=== PATIENT | female | born 1970 | race Caucasian/White ===

== ENCOUNTER 2017-06-15 22:49 | Emergency (ER) | payer OTHER ==
[~2017-06-15] VITALS: Ht 162.6 cm; Wt 125.2 kg
[~2017-06-15 22:49] MED LIST: ACCUNEB SO1.25 MG/1 INH; ACCUNEB0.63 MG/3 INH; ADVAIR 100-501 EACH; ALEVE220 M1 PO; AZITHROMYCIN 2250 MG PO; BACTRIM DS TAB1 EACH PO; CALCIUM 600 +1 EAC1; CELEXA20 MG PO; CYMBALTA20 MG PO; FAMCICLOVIR125 MG PO; HYDROCHLOROTH12.5 MG PO; HYDROCHLOROTHIA50 MG PO; HYDROCODON-ACET15 ML PO; IBUPROFEN 800800 MG PO; JANUVIA50 MG PO; K-DUR10 MEQ PO; LEXAPRO20 MG PO; LISINOPRIL40 MG PO; METFORMIN 500500 MG PO; MUCINEX DM TABL1 TA1 PO; MULTI FOR HER1 EACH; MULTIVITAMIN W1 EACH PO; NORCO 5-325 TA1 EACH PO; NORVASC10 MG PO; PRINIVIL20 MG PO; PROTONIX40 MG PO; PROVENTIL; PROVENTIL HFA6.7 G1 INH; UNICOMPLEX M TA1 TA1; VITAMIN C100 M1 PO; VITAMIN E100 UNIT; XANAX 0.25 MG0.25 MG PO; ZOFRAN ODT4 MG PO; ZYRTEC 10 MG TA10 MG PO
[2017-06-15] MEDS ORDERED: PREDNISONE 10 M10 MG PO (23:06)
[2017-06-15] MEDS ORDERED: EDARBYCLOR 40-1 EACH PO (23:07)
[2017-06-15] MEDS ORDERED: DULCOLAX5 MG PO (23:07)
[2017-06-16 00:13] LABS: HEMATOCRIT 38.3 % (37.0-47.0); HEMOGLOBIN 12.7 gm/dL (12.0-15.0); MCH 29.5 pg (26.0-34.0); MCHC 33.2 g/dL (28.0-37.0); MCV 88.7 fL (80.0-100.0); PLATELET COUNT 245 thou/uL (150-400); RBC 4.31 mil/uL (4.20-5.00); RDW 13.3 % (10.5-14.5); WBC 11.8 thou/uL (4.0-11.0)
[2017-06-16 00:14] LABS: MANUAL DIFF YES
[2017-06-16 00:20] LABS: CALCIUM 8.5 mg/dL (8.5-10.1); POTASSIUM 4.4 mmol/L (3.5-5.1)
[2017-06-16 00:39] LABS: ABSOLUTE NEUTROPHILS 8.1 thou/uL (1.4-8.2); TOTAL CELL COUNT 100
[2017-06-16 01:21] LABS: URINE BILIRUBIN NEGATIVE (Negative); URINE BLOOD NEGATIVE (Negative); URINE COLOR YELLOW; URINE GLUCOSE-RANDOM* NEGATIVE (Negative); URINE KETONES NEGATIVE (Negative); URINE LEUKOCYTES-REFLEX 1+ (Negative); URINE PROTEIN (DIPSTICK) NEGATIVE (Negative); URINE SPECIFIC GRAVITY 1.025 (1.003-1.035); URINE UROBILINOGEN 0.2 E.U./dl (0.2-1.0)
[2017-06-16 01:38] LABS: CASTS None Seen /LPF (None Seen); CRYSTALS None Seen /LPF (None Seen); SQUAMOUS 4-10 Moderate /LPF (0-3); URINE RBC None Seen /HPF (0-2); URINE WBC-REFLEX 6-15 Few /HPF (0-5)
[2017-06-16] MEDS ORDERED: MACROBID 100 M100 M2 PO (01:44)
== END 2017-06-16 01:59 | disposition home or self-care (01) ==
LOC: ER 22:49
PROVIDERS: Emergency Medicine
DX: N39.0 Urinary tract infection, site not specified (principal); M79.1 Myalgia; E11.9 Type 2 diabetes mellitus without complications; J45.909 Unspecified asthma, uncomplicated; I10 Essential (primary) hypertension; F10.99 Alcohol use, unspecified with unspecified alcohol-induced disorder; Z98.890 Other specified postprocedural states; Z91.048 Other nonmedicinal substance allergy status; Z88.1 Allergy status to other antibiotic agents; Z91.018 Allergy to other foods; Z91.040 Latex allergy status; Z88.8 Allergy status to other drugs, medicaments and biological substances

== ENCOUNTER → 2018-01-08 | Outpatient (CLI) | payer OTHER ==
[~2018-01-08] MED LIST changes: +DULCOLAX5 MG PO; +EDARBYCLOR 40-1 EACH PO; +MACROBID 100 M100 M2 PO; +PREDNISONE 10 M10 MG PO
== END ==
LOC: RAD 09:07
DX: R05 Cough (principal); R06.02 Shortness of breath

== ENCOUNTER → 2018-10-19 | Outpatient (CLI) | payer OTHER | LOC: CAT 15:00 | DX: Z13.6 Encounter for screening for cardiovascular disorders (principal); E78.00 Pure hypercholesterolemia, unspecified ==

== ENCOUNTER → 2019-03-07 | Outpatient (CLI) | payer OTHER | LOC: ULTRA 12:01 | DX: N93.8 Other specified abnormal uterine and vaginal bleeding (principal) ==

== ENCOUNTER 2020-01-23 16:06 | Emergency (ER) | payer OTHER ==
[~2020-01-23] VITALS: Ht 162.6 cm; Wt 131.5 kg
[2020-01-23] MEDS ORDERED: NAPROSYN500 MG PO (17:46)
[2020-01-23] MEDS ORDERED: TRAMADOL 50 MG50 MG PO (17:46)
[2020-01-23 18:00] VITALS: BP 133/84
== END 2020-01-23 18:00 | disposition home or self-care (01) ==
LOC: ER 16:06
DX: S93.492A Sprain of other ligament of left ankle, initial encounter (principal); S80.211A Abrasion, right knee, initial encounter; I10 Essential (primary) hypertension; E11.9 Type 2 diabetes mellitus without complications; J45.909 Unspecified asthma, uncomplicated; G47.30 Sleep apnea, unspecified; Z91.040 Latex allergy status; Z91.018 Allergy to other foods; Z91.048 Other nonmedicinal substance allergy status; Z88.1 Allergy status to other antibiotic agents; X50.1XXA Overexertion from prolonged static or awkward postures, initial encounter; Y93.89 Activity, other specified; Y92.89 Other specified places as the place of occurrence of the external cause; Y99.8 Other external cause status

== ENCOUNTER → 2020-04-08 | Outpatient (CLI) | payer OTHER ==
[~2020-04-08] MED LIST changes: +NAPROSYN500 MG PO; +TRAMADOL 50 MG50 MG PO
== END ==
LOC: SJCVCIMAG 09:21
DX: Z01.810 Encounter for preprocedural cardiovascular examination (principal); I10 Essential (primary) hypertension; E78.5 Hyperlipidemia, unspecified; G47.33 Obstructive sleep apnea (adult) (pediatric)

== ENCOUNTER → 2021-03-15 | Outpatient (CLI) | payer OTHER | LOC: CAT 10:52 | PROVIDERS: ATTEND Family Medicine | DX: R42 Dizziness and giddiness (principal); H54.7 Unspecified visual loss ==

== ENCOUNTER → 2021-05-24 | Outpatient (CLI) | payer OTHER ==
[2021-05-24 11:07] LABS: ABSOLUTE NEUTROPHILS 4.1 thou/uL (1.4-8.2); BASOPHILS 0.8 % (0.0-2.0); EOSINOPHILS 2.6 % (0.0-3.0); HEMATOCRIT 37.4 % (37.0-47.0); HEMOGLOBIN 12.2 gm/dL (12.0-15.0); LYMPHOCYTES 30.5 % (24.0-44.0); MCH 28.9 pg (26.0-34.0); MCHC 32.6 g/dL (28.0-37.0); MCV 88.5 fL (80.0-100.0); PLATELET COUNT 220 thou/uL (150-400); POLYS 58.1 % (36.0-66.0); RBC 4.22 mil/uL (4.20-5.00); RDW 13.8 % (10.5-14.5); WBC 7.1 thou/uL (4.0-11.0)
[2021-05-24 11:24] LABS: ALBUMIN 3.4 g/dL (3.4-5.0); CALCIUM 8.4 mg/dL (8.5-10.1); CREATININE 0.9 mg/dL (0.6-1.0); POTASSIUM 4.4 mmol/L (3.5-5.1); TOTAL BILIRUBIN 0.3 mg/dL (0.2-1.0); TOTAL PROTEIN 7.3 g/dL (6.4-8.2)
== END ==
LOC: LAB 09:28
PROVIDERS: ATTEND Internal Medicine Cardiovascular Disease
DX: I10 Essential (primary) hypertension (principal); R25.2 Cramp and spasm; R53.83 Other fatigue

== ENCOUNTER 2021-08-17 10:44 | Emergency (ER) | payer OTHER ==
[~2021-08-17] VITALS: Ht 162.6 cm; Wt 131.5 kg
[2021-08-17] MEDS ORDERED: ROSUVASTATIN CA20 MG PO (10:56)
[2021-08-17 11:11] LABS: ABSOLUTE NEUTROPHILS 4.8 thou/uL (1.4-8.2); BASOPHILS 0.4 % (0.0-2.0); EOSINOPHILS 2.3 % (0.0-3.0); HEMATOCRIT 36.2 % (37.0-47.0); LYMPHOCYTES 26.2 % (24.0-44.0); MCH 28.9 pg (26.0-34.0); MCHC 33.2 g/dL (28.0-37.0); MCV 87.1 fL (80.0-100.0); PLATELET COUNT 202 thou/uL (150-400); POLYS 66.1 % (36.0-66.0); RBC 4.16 mil/uL (4.20-5.00); WBC 7.2 thou/uL (4.0-11.0)
[2021-08-17 11:31] LABS: CALCIUM 8.3 mg/dL (8.5-10.1); CREATININE 1.3 mg/dL (0.6-1.0); POTASSIUM 3.8 mmol/L (3.5-5.1)
[2021-08-17 11:37] LABS: ALBUMIN 3.1 g/dL (3.4-5.0); TOTAL BILIRUBIN 0.4 mg/dL (0.2-1.0); TOTAL PROTEIN 6.8 g/dL (6.4-8.2)
[2021-08-17 13:25] LABS: URINE BILIRUBIN NEGATIVE (Negative); URINE BLOOD 3+ (Negative); URINE CLARITY SL HAZY; URINE COLOR YELLOW; URINE GLUCOSE-RANDOM* NEGATIVE (Negative); URINE KETONES NEGATIVE (Negative); URINE LEUKOCYTES-REFLEX 1+ (Negative); URINE NITRITE-REFLEX NEGATIVE (Negative); URINE PROTEIN (DIPSTICK) TRACE (Negative); URINE SPECIFIC GRAVITY 1.015 (1.005-1.035)
[2021-08-17 13:30] LABS: CASTS None Seen /LPF (None Seen); CRYSTALS None Seen /LPF (None Seen); SQUAMOUS 0-3 Few /LPF (0-3); URINE RBC >20 Many /HPF (NONE SEEN); URINE WBC-REFLEX 6-15 Few /HPF (0-5)
[2021-08-17 13:36] VITALS: BP 101/56
--- NOTE | 2021-08-17 15:33 | EKG ---
[place] [address] [facility] [place] [address] ELECTROCARDIOGRAM REPORT Name: SHANNON LAURENT [facility] [id number] Admission: 08/17/21 Attend Phys: Discharge: 08/17/21 Date of : 68 Report #: [id number] [facility] ED Test Date: 2021-08-17 Test Time: 10:46:20 Pat Name: SHANNON LAURENT Department: Room: Gender: F Dispatcher [employer]: María LAU : 1970 Requested By: Salome Alexander Order Number: [id number] MD: Oleg Green Measurements Intervals [place] Rate: 63 P: 3 HI: 168 QRS: -29 QRSD: 89 T: 1 QT: 432 QTc: 443 Interpretive Statements Sinus rhythm Inferior infarct, old Compared to ECG 09/11/2012 08:07:49 Myocardial infarct finding now present Electronically Signed On 08-17-2021 15:32:57 CDT by Oleg Green [email or web address] <ELECTRONICALLY SIGNED> By: Oleg Green MD, [facility] 08/17/21 1532 1046 [id number] Oleg Green MD, FACC /EPI
== END 2021-08-17 13:37 | disposition home or self-care (01) ==
LOC: ER 10:44
PROVIDERS: Student in an Organized Health Care Education/Training Program
DX: I95.9 Hypotension, unspecified (principal); E86.0 Dehydration; R55 Syncope and collapse; J45.909 Unspecified asthma, uncomplicated; I10 Essential (primary) hypertension; E11.9 Type 2 diabetes mellitus without complications; Z98.890 Other specified postprocedural states; Z79.1 Long term (current) use of non-steroidal anti-inflammatories (NSAID); Z79.51 Long term (current) use of inhaled steroids; Z79.891 Long term (current) use of opiate analgesic; Z79.899 Other long term (current) drug therapy; Z88.6 Allergy status to analgesic agent; Z88.1 Allergy status to other antibiotic agents; Z88.3 Allergy status to other anti-infective agents; Z91.040 Latex allergy status; Z91.018 Allergy to other foods

== ENCOUNTER → 2021-09-27 | Outpatient (CLI) | payer OTHER ==
[~2021-09-27] MED LIST changes: +ADVIL200 M3 PO; +ALL DAY ALLERGY10 M3 PO; +BUPROPION XL300 MG PO; +LORAZEPAM 0.50.5 MG PO; +NAPROXEN500 MG PO; +ONE-DAILY MULT1 EAC1 PO; +ROSUVASTATIN CA20 MG PO
== END ==
LOC: LAB 09:51
PROVIDERS: ATTEND Student in an Organized Health Care Education/Training Program
DX: Z20.822 Contact with and (suspected) exposure to COVID-19 (principal)

== ENCOUNTER → 2021-10-29 | Outpatient (CLI) | payer OTHER | LOC: ULTRA 15:20 | PROVIDERS: ATTEND Obstetrics & Gynecology | DX: R93.89 Abnormal findings on diagnostic imaging of other specified body structures (principal); N95.0 Postmenopausal bleeding ==

== ENCOUNTER → 2022-01-07 | Day surgery (SDC) | payer OTHER ==
[~2022-01-07] VITALS: Ht 162.6 cm; Wt 140.6 kg
[~2022-01-07] MED LIST changes: +IBUPROFEN 600600 M1 PO; +NORCO5 PO
[2022-01-07 09:02] VITALS: BP 125/81
[2022-01-07 09:04] LABS: HEMATOCRIT 35.7 % (37.0-47.0); HEMOGLOBIN 11.9 gm/dL (12.0-15.0)
[2022-01-07 12:28] VITALS: BP 125/81
--- NOTE | 2022-01-12 08:15 | O ---
[facility] [place] [address] OPERATIVE REPORT Name: SHANNON LAURENT BILLY Room #: [facility] M..#: [id number] Admission: 01/07/22 Attend Phys: Adrienne De DO Discharge: Date of : 68 Report #: [id number] THIS REPORT FOR: cc: Tai Pimentel James A. DO Farris, Kari C. DO ~ DATE OF SERVICE: 01/07/2022 DATE OF PROCEDURE: 01/07/2022 PREOPERATIVE DIAGNOSES: 1. Atypical endometrial hyperplasia. 2. Postmenopausal bleeding. POSTOPERATIVE DIAGNOSES: 1. Atypical endometrial hyperplasia. 2. Postmenopausal bleeding. 3. Thickened endometrium. OPERATIVE PROCEDURE: Hysteroscopy, dilatation and curettage with MyoSure. SURGEON: Adrienne De DO ANESTHESIA: General. INTRAVENOUS FLUIDS: 450 mL URINE OUTPUT: 100 mL ESTIMATED BLOOD LOSS: 10 mL HYSTEROSCOPIC INPUT: 3222 mL HYSTEROSCOPIC DEFICIT: 660 mL COMPLICATIONS: None. PATHOLOGY: Endometrial curettings. DESCRIPTION OF PROCEDURE: The patient was taken to the operating room where general anesthesia was administered and found to be adequate. She was then prepped and draped in normal sterile fashion in dorsal lithotomy position. A latex-free catheter was placed in the patient's bladder. The bladder was drained of urine. A weighted speculum was placed in the patient's vagina. The anterior lip of the cervix was identified and grasped with a single tooth tenaculum. The cervix was then gently dilated with graduated Hanks dilators. [facility] [address] [place] [address] OPERATIVE REPORT Name: SHANNON LAURENT [facility] Room #: [facility] M.R.#: [id number] Admission: 01/07/22 Attend Phys: Adrienne De DO Discharge: Date of : 68 Report #: [id number] The 5.5 mm hysteroscope was then inserted through the cervix, gently advanced into the uterus. Extremely thickened amount of tissue was noted throughout the uterine cavity from the cervix all the way to the fundus. Using the working channel of the hysteroscope, the MyoSure device was inserted. Endometrial curettings were performed circumferentially. Due to the thickened nature of the tissue and the amount of tissue, the endometrium remained thickened post-curettage. The MyoSure was removed as was the hysteroscope. Sharp curettage was performed circumferentially to further assist in thinning the tissue. Once this was performed, the curette was removed from the patient's uterus. The tenaculum was removed from the patient's cervix. Hemostasis was noted at the tenaculum site. The weighted speculum was removed from the patient's vagina. The patient tolerated the procedure well. Sponge and instrument counts were reported as correct and the patient was taken to the recovery room in stable condition. <ELECTRONICALLY SIGNED> By: Adrienne De DO 01/12/22 0815 1122 [id number] Adrienne De DO /ramon
== END | disposition home or self-care (01) ==
LOC: OR 08:04
PROVIDERS: Anesthesiology; ATTEND Obstetrics & Gynecology
DX: N85.00 Endometrial hyperplasia, unspecified (principal); N95.0 Postmenopausal bleeding; R93.89 Abnormal findings on diagnostic imaging of other specified body structures; I10 Essential (primary) hypertension; E78.5 Hyperlipidemia, unspecified; J45.909 Unspecified asthma, uncomplicated; F32.9 Major depressive disorder, single episode, unspecified; F41.9 Anxiety disorder, unspecified; G47.30 Sleep apnea, unspecified; Z98.890 Other specified postprocedural states; Z79.899 Other long term (current) drug therapy; Z20.822 Contact with and (suspected) exposure to COVID-19; Z98.84 Bariatric surgery status; Z88.0 Allergy status to penicillin; Z91.040 Latex allergy status
CPT/HCPCS: 50010; 50101; 50386; 54171; 54172; 54173; 57160; 62110; 62900; 70005